=== PATIENT | female | born 1930 | race American Indian/Alaskan Native ===

== ENCOUNTER 2020-06-06 11:48 | Emergency (ER) | payer MEDICARE ==
--- NOTE | 2020-06-06 11:55 | Emergency Department Report ---
Stated Complaint: CHEST PAIN Time Seen by Provider: 06/06/20 11:53 - HPI History of Present Illness: Patient complains of intermittent chest pain for the past 3 days, none currently, no difficulty in breathing, cough, fever, abdominal pain, no radiation. - Exam Vital Signs: VS stable Physical Exam: Nontoxic, no distress, alert and oriented appropriately, no resp distress, stable vitals MSE screening note: Focused history and physical exam performed. Due to findings the following was ordered: Labs, EKG, chest x-ray ED Disposition for MSE Condition: Stable
[2020-06-06 11:58] VITALS: BP 167/79
[2020-06-06 12:50] LABS: Hematocrit 27.9 % (30.3-42.9); Hemoglobin 8.7 gm/dl (10.1-14.3); Mean Corpuscular HGB Conc 31 % (30-34); Mean Corpuscular Volume 80 fl (79-97); Platelet Count 427 K/mm3 (140-440); Red Blood Count 3.51 M/mm3 (3.65-5.03); Red Cell Distribution Width 28.3 % (13.2-15.2)
[2020-06-06 12:54] LABS: INR 1.15 (0.87-1.13)
[2020-06-06 13:12] LABS: Alanine Aminotransferase 12 units/L (7-56); Albumin 3.3 g/dL (3.9-5); BUN/Creatinine Ratio 10; Blood Urea Nitrogen 9 mg/dL (7-17); Calcium 8.4 mg/dL (8.4-10.2); Hemolysis Index 6
[2020-06-06 13:19] LABS: Anisocytosis 3+; Hypochromasia 1+; Poikilocytosis 1+; Total Cells Counted 100
[2020-06-06 13:20] LABS: Burr Cells Few; Ovalocytes Few; Platelet Estimate Consistent w Auto; Tear Drop Cells Few
--- NOTE | 2020-06-06 13:20 | XRay Report ---
CHEST 1 VIEW INDICATION: Chest pain. COMPARISON: 05/19/2020 FINDINGS: Support devices: None. Heart: Stable. Lungs/Pleura: No acute pulmonary or pleural findings. Right cardiophrenic lesion is unchanged. IMPRESSION: 1. No acute findings. Signer Name: Vincent Schwartz MD Signed: 06/06/2020 1:15 PM Workstation Name: [id number]
[2020-06-06] MEDS ORDERED: ASPIRIN 81 MG TAB CHEW PO ONE (13:33)
--- NOTE | 2020-06-06 13:38 | Emergency Department Report ---
ED Chest Pain HPI - General Chief Complaint: Chest Pain Stated Complaint: CHEST PAIN Time Seen by Provider: 06/06/20 11:53 Source: patient Mode of arrival: Wheelchair Limitations: No Limitations - History of Present Illness Initial Comments: Patient is 89 years old female with history of dementia and goiter. Patient presented to the ER complaining of chest pain. Patient stated that pain started this morning. Patient is pointing to her substernal area. Patient stated the pain is tight. Patient denied any fever or chills. No shortness of breath. Patient is a very poor historian and she just kept asking about her and that she wanted him to be in the room with her. Complaint: chest pain -: This morning Onset: during rest Pain Location: substernal Pain Radiation: none Quality: tightness Consistency: intermittent - Related Data Home Medications Medication Instructions Recorded Confirmed Last Taken Timolol 0.5% [Timoptic] 1 drops OP BID 05/15/20 05/15/20 Unknown Previous Rx's Medication Instructions Recorded Last Taken Type cloNIDine-TTS PATCH [Catapres-Tts 0.2 mg TD Sa #10 patch 05/29/20 Unknown Rx 0.2mg Patch] LORazepam [Ativan] 0.5 mg PO QHS #30 tab 06/06/20 Unknown Rx Morphine Concentrate [MORPHINE 10 mg PO Q4HR PRN #30 ml 06/06/20 Unknown Rx Conc 20 MG/ML ORAL LIQ] Allergies Allergy/AdvReac Type Severity Reaction Status Date / Time Penicillins Allergy Unknown Verified 06/06/20 11:49 Heart Score - HEART Score History: Moderately suspicious EKG: Non-specific Age: > 65 Risk factors: > 3 risk factors or hx of atherosclerotic disease Troponin: < normal limit HEART Score: 6 - Critical Actions Critical Actions: 4-6 pts:12-16.6% risk of adverse cardiac event. Should be admitted ED Review of Systems ROS: Stated complaint: CHEST PAIN Other details as noted in HPI Comment: All other systems reviewed and negative Constitutional: denies: chills, fever Respiratory: denies: cough, shortness of breath Cardiovascular: chest pain Gastrointestinal: denies: abdominal pain, nausea, vomiting Musculoskeletal: denies: back pain Neurological: denies: headache ED Past Medical Hx - Social History Smoking Status: Never Smoker - Medications Home Medications: Home Medications Medication Instructions Recorded Confirmed Last Taken Type Timolol 0.5% [Timoptic] 1 drops OP BID 05/15/20 05/15/20 Unknown History cloNIDine-TTS PATCH [Catapres-Tts 0.2 mg TD Sa #10 patch 05/29/20 Unknown Rx 0.2mg Patch] LORazepam [Ativan] 0.5 mg PO QHS #30 tab 06/06/20 Unknown Rx Morphine Concentrate [MORPHINE 10 mg PO Q4HR PRN #30 ml 06/06/20 Unknown Rx Conc 20 MG/ML ORAL LIQ] ED Physical Exam - General Limitations: No Limitations General appearance: alert, in no apparent distress - Head Head exam: Present: atraumatic, normocephalic, normal inspection - Eye Eye exam: Present: normal appearance, PERRL - ENT ENT exam: Present: normal exam, normal orophraynx, mucous membranes moist - Neck Neck exam: Present: normal inspection, full ROM. Absent: tenderness, meningismus, lymphadenopathy, thyromegaly - Respiratory Respiratory exam: Present: normal lung sounds bilaterally - Cardiovascular Cardiovascular Exam: Present: regular rate, normal rhythm, normal heart sounds - GI/Abdominal GI/Abdominal exam: Present: soft, normal bowel sounds. Absent: distended, tenderness, guarding, rebound, rigid, organomegaly, mass, bruit, pulsatile mass, hernia - Extremities Exam Extremities exam: Present: normal inspection, full ROM, normal capillary refill - Back Exam Back exam: Present: normal inspection, full ROM. Absent: CVA tenderness (R), CVA tenderness (L) - Neurological Exam Neurological exam: Present: alert, oriented X3, CN II-XII intact - Psychiatric Psychiatric exam: Present: normal mood - Skin Skin exam: Present: warm, intact, normal color ED Course Vital Signs 06/06/20 11:56 Temperature 98.0 F Pulse Rate 98 H Respiratory 18 Rate Blood Pressure 167/79 [Right] O2 Sat by Pulse 99 Oximetry ED Medical Decision Making - Lab Data Result diagrams: 06/06/20 12:04 06/06/20 12:04 - EKG Data -: EKG Interpreted by Me EKG shows normal: sinus rhythm Rate: normal - EKG Data Interpretation: no acute changes - Radiology Data Radiology results: report reviewed - Medical Decision Making Patient is 89 years old female with history of dementia and goiter. Patient presented to the ER complaining of chest pain. Patient stated that pain started this morning. Patient is pointing to her substernal area. Patient stated the pain is tight. Patient denied any fever or chills. No shortness of breath. Patient is a very poor historian and she just kept asking about her and that she wanted him to be in the room with her. EKG showed no ST elevation. Labs reviewed and is negative including a negative troponin. Patient received aspirin. I discussed the patient with Dr. Redmond for admission and he stated that he is coming to talk to the patient for further management. Critical care attestation.: If time is entered above; I have spent that time in minutes in the direct care of this critically ill patient, excluding procedure time. ED Disposition Clinical Impression: Chest pain Disposition: OP ADMIT IP TO THIS HOSP Is pt being admited?: Yes Condition: Stable Instructions: Chest Pain (ED) Prescriptions: LORazepam [Ativan] 0.5 mg PO QHS #30 tab Morphine Concentrate [MORPHINE Conc 20 MG/ML ORAL LIQ] 10 mg PO Q4HR PRN #30 ml PRN Reason: Pain , Severe (7-10) Referrals: PRIMARY CARE, [Primary Care Provider] - 3-5 Days
--- NOTE | 2020-06-06 16:12 | History and Physical Report ---
History of Present Illness Chief complaint: She said she was hurting History of present illness: 89 YO Female with Vascular Dementia without Behavioral Disturbance, Cerebral Atherosclerosis, HTN, Glaucoma, Anemia of Chronic Disease, OA, Malnutrition who has Pallative Performance Score of 40% and requires 5/6 Assistance with activities of daily living, largely bedbound, and requires standby assistance with transfers presents to ED for evaluation. Patient has diminished cognition and exhibits tangential thinking and is unable to provide detailed history. Patient history provided by the patient's who is bedside during exam and interview. As per the patient has experienced increased confusion and agitation and complains of pain. Patient transported to [facility] via private vehicle for further care and evaluation. Patient seen and evaluated in the emergency department. All lab and imaging studies reviewed. Patient found to have encephalopathy, malnutrition, as well as debility. Patient underwent CT scan of the chest which did not reveal any acute findings. Findings compared to prior CT conducted on previous admission on 05/15/2020. Advanced care planning conducted in ED. Patient placed in observation status and admitted to medical floor for further care and evaluation. All medication listed at time of admission has been reconciled. Prior admission on 05/15/2020 reviewed. Past History Past Medical History: hypertension, other (See HPI) Past Surgical History: thyroidectomy Social history: , lives with family Family history: hypertension Medications and Allergies Allergies Allergy/AdvReac Type Severity Reaction Status Date / Time Penicillins Allergy Unknown Verified 06/06/20 11:49 Home Medications Medication Instructions Recorded Confirmed Last Taken Type Timolol 0.5% [Timoptic] 1 drops OP BID 05/15/20 05/15/20 Unknown History cloNIDine-TTS PATCH [Catapres-Tts 0.2 mg TD Sa #10 patch 05/29/20 Unknown Rx 0.2mg Patch] Review of Systems ROS unobtainable: due to mental status Exam - Constitutional Vitals: Temp Pulse Resp BP Pulse Ox 98.0 F 98 H 18 167/79 99 06/06/20 11:56 06/06/20 11:56 06/06/20 11:56 06/06/20 11:56 06/06/20 11:56 General appearance: Present: no acute distress, cachectic - EENT Eyes: Present: PERRL ENT: hearing intact, clear oral mucosa - Neck Neck: Present: supple, normal ROM - Respiratory Respiratory effort: normal Respiratory: bilateral: CTA - Cardiovascular Heart Sounds: Present: S1 & S2. Absent: rub, click - Extremities Extremities: pulses symmetrical, No edema Peripheral Pulses: within normal limits - Abdominal General gastrointestinal: Present: soft, non-tender, non-distended, normal bowel sounds Female genitourinary: Present: normal - Integumentary Integumentary: Present: clear, warm, dry - Musculoskeletal Musculoskeletal: gait normal, strength equal bilaterally - Psychiatric Psychiatric: appropriate mood/affect, no intact judgment & insight, no memory intact - Neurologic Neurologic: CNII-XII intact, no focal deficits, moves all extremities, no gait normal HEART Score - HEART Score EKG: Non-specific Age: > 65 Risk factors: > 3 risk factors or hx of atherosclerotic disease Troponin: Troponin T 0.016 ng/mL (0.00-0.029) 06/06/20 12:04 Troponin: < normal limit - Critical Actions Critical Actions: 4-6 pts:12-16.6% risk of adverse cardiac event. Should be admitted Results - Labs CBC & Chem 7: 06/06/20 12:04 06/06/20 12:04 Labs: Abnormal lab results 06/06/20 06/06/20 06/06/20 Range/Units 12:04 12:04 12:04 RBC 3.51 L (3.65-5.03) M/mm3 Hgb 8.7 L (10.1-14.3) gm/dl Hct 27.9 L (30.3-42.9) % MCH 25 L (28-32) pg RDW 28.3 H (13.2-15.2) % Monocytes % (Manual) 8.0 H (0.0-7.3) % Eosinophils % (Manual) 6.0 H (0.0-4.3) % Lymphocytes # (Manual) 0.9 L (1.2-5.4) K/mm3 INR 1.15 H (0.87-1.13) Chloride 109.3 H (98-107) mmol/L Total Protein 6.2 L (6.3-8.2) g/dL Albumin 3.3 L (3.9-5) g/dL Assessment and Plan - Patient Problems (1) Vascular dementia without behavioral disturbance Current Visit: Yes Status: Acute Plan to address problem: Verbal prompting, verbal redirection, benzodiazepine therapy as clinically indicated. (2) Cerebral atherosclerosis Current Visit: Yes Status: Acute Plan to address problem: Antiplatelet therapy as clinically indicated, supportive care. (3) Malnutrition Current Visit: Yes Status: Acute Qualifiers: Malnutrition type: protein-calorie malnutrition Plan to address problem: Dietary supplementation, encourage increased protein intake. (4) Debility Current Visit: Yes Status: Acute Plan to address problem: Supportive care, fall precautions. (5) Advance care planning Current Visit: Yes Status: Acute Plan to address problem: Disease education conducted, prognosis discussed, care plan discussed. Patient declines admission at this time. Patient elects to have patient discharged home and initiate home hospice care. +30 minutes. Patient initially placed in observation status and admitted to medical floor. However at 's request the patient is currently discharged home.
--- NOTE | 2020-06-06 16:13 | Cat Scan Report ---
CT angio chest INDICATION / CLINICAL INFORMATION: chest pain. TECHNIQUE: Axial CT images were obtained through the chest after injection of IV contrast. 3 plane MIP and/or 3D reconstructions were produced. All CT scans at this location are performed using CT dose reduction f or ALARA by means of automated exposure control. COMPARISON: X-ray chest same day. CT chest from May 15, 2020 FINDINGS: PULMONARY ARTERIES: No pulmonary emboli. HEART: No significant abnormality. 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 LUNGS: 2 cm right upper lobe groundglass opacity with two adjacent nodular components measuring appro ximately 3 mm on image 42 series 2. No pleural effusion. No pneumothorax. ADDITIONAL FINDINGS: Post operative changes from recent left thyroidectomy with air and fluid in the postoperative bed. There is a residual thyroid nodule seen in the superior mediastinum measuring 3.4 cm resulting in mass effect on the left lateral aspect aspect of the esophagus as seen on image 28 of series 2. UPPER ABDOMEN: No acute findings. SKELETAL STRUCTURES: No significant osseous abnormality. IMPRESSION: 1. No CT evidence for pulmonary embolism. 2. Persistent right groundglass opacity measuring 2 cm with subsolid nodular components measuring up to 3mm seen within the posterior segment of the right upper lobe. This is nonspecific but can be seen in the setting of adenocarcinoma. Recommend follow up CT in 6 months for further evaluation. 3. Interval postoperative changes from left lower neck mean. Residual thyroid nodule seen in the supe rior mediastinum measuring 3.4 cm along the left lateral aspect of the esophagus. 4. Unchanged large pericardial cyst. Signer Name: Martin Santana MD Signed: 06/06/2020 4:08 PM Workstation Name: [id number]
== END 2020-06-06 17:39 | disposition admitted as inpatient to this hospital (09) ==
LOC: ED 11:48
DX: R07.89 Other chest pain (principal); I10 Essential (primary) hypertension; F03.90 Unspecified dementia, unspecified severity, without behavioral disturbance, psychotic disturbance, mood disturbance, and anxiety; Z98.890 Other specified postprocedural states; Z79.899 Other long term (current) drug therapy; Z88.0 Allergy status to penicillin
CPT/HCPCS: 36415; 71045; 71275; 80053; 83690; 84484; 85007; 85025; 85610; 93005; 99284; Q9967